=== PATIENT | female | born 1975 | race Caucasian/White ===

== ENCOUNTER 2018-12-28 11:14 | Outpatient (REF) | payer OTHER, SELFPAY ==
[2018-12-28 13:05] LABS: Anion Gap 11.2 mmol/L (3-11); BUN 14 mg/dL (7-18); CO2 25.8 mmol/L (21.0-32.0); CREATININE 0.79 mg/dL (0.55-1.02); Calcium 9.7 mg/dL (8.5-10.1); Chloride 100 mmol/L (98-107); Cholesterol 234 mg/dL (50-200); Glucose 85 mg/dL (70-100); HDL Cholesterol 66 mg/dL (40-60); LDL CHOLESTEROL 129 mg/dL (<100); Potassium 4.6 mmol/L (3.5-5.1); Sodium 137 mmol/L (136-145); Triglyceride 165 mg/dL (30-150)
== END 2018-12-28 11:34 ==
LOC: NCHCN 11:14
PROVIDERS: PCP Nurse Practitioner Family; Visit Provider Nurse Practitioner Family
DX: I10 Essential (primary) hypertension (principal)
CPT/HCPCS: 80048; 80061; 83721

== ENCOUNTER 2020-03-15 08:24 | Outpatient (REF) | payer OTHER, SELFPAY ==
[2020-03-15 14:04] LABS: Hemoglobin A1C 6.2 % (3.8-5.6)
[2020-03-15 14:09] LABS: Anion Gap 11.9 mmol/L (3-11); BUN 9 mg/dL (7-18); CO2 23.1 mmol/L (21.0-32.0); CREATININE 0.79 mg/dL (0.55-1.02); Calcium 9.3 mg/dL (8.5-10.1); Calculated LDL 139 mg/dL (<100); Chloride 100 mmol/L (98-107); Cholesterol 239 mg/dL (<200); Glucose 94 mg/dL (74-106); HDL Cholesterol 62 mg/dL (40-60); Potassium 4.6 mmol/L (3.5-5.1); Sodium 135 mmol/L (136-145); Triglyceride 192 mg/dL (<150)
== END 2020-03-15 08:44 ==
LOC: NCHCN 08:24
PROVIDERS: PCP Nurse Practitioner Family; Visit Provider Nurse Practitioner Family
DX: I10 Essential (primary) hypertension (principal); E78.5 Hyperlipidemia, unspecified; R73.09 Other abnormal glucose
CPT/HCPCS: 80048; 80061; 83036

== ENCOUNTER 2020-05-02 09:08 | Outpatient (REF) | payer OTHER, SELFPAY ==
--- NOTE | 2020-05-02 08:49 | PAPFT_PTH ---
PATIENT: Hortencia Mckenna LOC: [facility] U#:[id number] AGE/SX: 44/F ROOM: RE05/02/[address]: Elizabeth Montalvo : 1975 BED: DIS: 05/02/2020 SPEC #: [id number] RECD: 05/03/20 12:45 STATUS: JAMIL REQ #: [id number] CARLEE: 05/02/20 08:[address]: Elizabeth Montalvo DEPT: [facility] Cytology RECD BY: Bruce Amanda Tissues: 1 - CX/ENDOCX FOR PAP SMEARS Procedures: PAP THIN PREP/UVM Screening HPV DNA PROBE Comments: [id number]
== END 2020-05-02 09:28 ==
LOC: LBN 09:08
PROVIDERS: PCP Nurse Practitioner Family; Visit Provider Nurse Practitioner Family
DX: R87.616 Satisfactory cervical smear but lacking transformation zone (principal); Z11.51 Encounter for screening for human papillomavirus (HPV)
CPT/HCPCS: 88142; 87624

== ENCOUNTER 2021-02-07 11:15 | Outpatient (CLI) | payer OTHER, SELFPAY ==
--- NOTE | 2021-02-07 13:03 | DI.RAD_ITS ---
Exam(s) XR THORACIC SPINE COMPLETE EXAM: XR THORACIC SPINE COMPLETE CLINICAL HISTORY: BACK PAIN M54.9. TECHNIQUE: 2D digital imaging was performed. COMPARISON: No exams were available for comparison FINDINGS: BONES: There is no fracture or destructive lesion. The vertebral bodies and posterior elements are un remarkable. DISKS:Alignment is within normal limits. Mild degenerative changes are seen throughout the thoracic s pine characterized by disc space narrowing and endplate osteophytes. SOFT TISSUE: Unremarkable. IMPRESSION: Mild degenerative changes in the thoracic spine. DATA REPOSITORY: RADIATION DOSE DELIVERED:
--- NOTE | 2021-02-07 13:03 | DI.RAD_ITS ---
Exam(s) XR SCAPULA RT EXAM: XR SCAPULA RT CLINICAL HISTORY: SHOULDER PAIN UNSPECIFIED M25.519, RT SCAPULA PAIN. TECHNIQUE: 2D digital imaging was performed. COMPARISON: No exams were available for comparison FINDINGS: BONES: No acute fracture is present. No bony destructive lesion is seen. JOINTS: No dislocation present. SOFT TISSUE: Normal. IMPRESSION: Unremarkable radiographs of the right scapula. DATA REPOSITORY: RADIATION DOSE DELIVERED:
--- NOTE | 2021-02-07 13:03 | DI.RAD_ITS ---
Exam(s) XR CERVICAL SPINE COMP 4-5V EXAM: XR CERVICAL SPINE COMP 4-5V CLINICAL HISTORY: NECK PAIN M54.2. TECHNIQUE: 2D digital imaging was performed. COMPARISON: No exams were available for comparison FINDINGS: BONES: No fracture or destructive lesion. Vertebral bodies are unremarkable. There is mild narrowing of the right neural foramen at C5-C6. DISKS: There is mild narrowing of the disc space at C5-C6. There are endplate osteophytes at C5-6 and C6-C7. ALIGNMENT: Cervical spinal alignment is within normal limits. The odontoid and atlantoaxial articulat ions are normal. SOFT TISSUE: Normal. The lung apices are clear. IMPRESSION: Mild cervical spondylosis. DATA REPOSITORY: RADIATION DOSE DELIVERED:
== END 2021-02-07 11:35 ==
PROVIDERS: PCP Nurse Practitioner Family; Visit Provider Physician Assistant Medical
DX: M54.6 Pain in thoracic spine (principal); M51.34 Other intervertebral disc degeneration, thoracic region; M25.511 Pain in right shoulder; M54.2 Cervicalgia; M50.322 Other cervical disc degeneration at C5-C6 level; M47.892 Other spondylosis, cervical region
CPT/HCPCS: 72050; 72072; 73010

== ENCOUNTER 2021-05-08 13:54 | Outpatient (REF) | payer OTHER, SELFPAY ==
[2021-05-08 16:41] LABS: Hemoglobin A1C 6.6 % (<5.7)
[2021-05-08 16:46] LABS: ALT 28 U/L (14-59); AST 32 U/L (15-37); Albumin 3.2 g/dL (3.4-5.0); Alkaline Phosphatase 76 U/L (46-116); Anion Gap 11.7 mmol/L (3-11); BUN 12 mg/dL (7-18); Bilirubin, Total 0.4 mg/dL (0.2-1.0); CO2 23.3 mmol/L (21.0-32.0); CREATININE 0.9 mg/dL (0.55-1.02); Calcium 9.2 mg/dL (8.5-10.1); Chloride 104 mmol/L (98-107); Glucose 98 mg/dL (74-106); Potassium 4.4 mmol/L (3.5-5.1); Sodium 139 mmol/L (136-145); Total Protein 7.1 g/dL (6.4-8.2)
[2021-05-08 17:02] LABS: Calculated LDL 143 mg/dL (<100); Cholesterol 240 mg/dL (<200); HDL Cholesterol 63 mg/dL (40-60); Triglyceride 172 mg/dL (<150)
== END 2021-05-08 13:55 | disposition home or self-care (01) ==
LOC: NCHCN 13:54
PROVIDERS: PCP Nurse Practitioner Family; Visit Provider Nurse Practitioner
DX: R73.03 Prediabetes (principal); E78.5 Hyperlipidemia, unspecified; I10 Essential (primary) hypertension
CPT/HCPCS: 80053; 80061; 83036

== ENCOUNTER 2022-04-15 06:52 | Day surgery (SDC) | payer OTHER, SELFPAY ==
--- NOTE | 2022-04-15 06:15 | W.COLOREPORT ---
Colonoscopy Report Date of procedure: 04/15/22 Pre-op diagnosis general: Colon Cancer Screening Post-op diagnosis procedure note: same Procedure: Colonoscopy Surgeon: Maday Hernández Anesthesia Type: General:No Airway Pathology: none sent Complications: None Disposition: same day Indications: The patient is here for Colonoscopy pre-op.? She has no family history of colon cancer. She has not had any bowel habit changes. -Discussed colonoscopy bowel prep as well as the procedure. Discussed possible complications of the procedure to include bleeding, pain, perforation, missed small lesion/polyp, sore throat, aspiration and adverse reaction to the medications. Questions were answered to patient?s satisfaction. No guarantees were implied or given. Prep: Miralax/Dulcolax Procedure Start Time: 08:16 Procedure End Time: 08: Retraction Time: 14 minutes Findings: normal colonoscopy Procedure Description: After informed consent was obtained the patient was taken to the procedure room and placed in a left decubitous position. Monitors were applied and a time out was done. The patients name, date of , procedure, allergies to medications and metal in their body was reviewed. The patient was then sedated. Once sedated and comfortable a rectal exam was done. External exam was normal. Internal exam revealed a normal sphincter tone and no palpable masses. The scope was then introduced and retro-flexed. There were no internal hemorrhoids, no polyps or masses were identified on retro-flexion. The scope was then advanced to the cecum without difficulty. The ileocecal vlave and appendiceal orifice were identified. The prep was good. The scope was then slowly retracted over 14 minutes back into the rectum. There were no Polyps and there was no diverticulosis noted. The scope was removed and the patient was woken up and taken back to Same day surgery in stable condition. The patient tolerated the procedure well and there were no immediate complications.
--- NOTE | 2022-04-15 06:16 | PDOC.DSDIS_ITS ---
Discharge Plan Disposition Patient Disposition: HOME Condition: Good Discharge Details Reason For Visit: colonoscopy Attending Provider: Maday Hernández Primary Care Provider: Elizabeth Montalvo Home Meds and New Rx's Prescriptions: Continued valsartan 320 mg tablet 320 mg PO DAILY amlodipine 5 mg tablet 5 mg PO DAILY melatonin 5 mg capsule 5 mg PO norgestimate-ethinyl estradiol [Zkg-Qk-Imtvlbxx] 0.18/0.215/0.25 mg-25 mcg tablet 1 tab PO DAILY hydrochlorothiazide 25 mg tablet 25 mg PO DAILY pravastatin 40 mg tablet 40 mg PO DAILY cholecalciferol (vitamin D3) 25 mcg (1,000 unit) capsule 25 mcg PO DAILY fluocinonide 0.05 % solution 1 applic topical BID calcium carbonate [Calcium 600] 600 mg calcium (1,500 mg) tablet 600 mg PO DAILY Discontinued bisacodyl [Dulcolax (bisacodyl)] 5 mg tablet,delayed release (DR/EC) 5 mg PO ONCE Qty: 4 0RF Rx Instructions: Take according to provider's instructions for colonoscopy prep. polyethylene glycol 3350 17 gram/dose powder 17 g PO ONCE Qty: 238 0RF Rx Instructions: To be taken as directed by prescriber's office for colonoscopy prep. Discharge Instructions Additional Instructions: Findings: Normal Follow up: 10 years Please call if you develop: fevers >101.5 Nausea or Vomiting Abdominal pain that is not transient Rectal bleeding that is more then a tbsp A hard abdomen and inability to pass gas DAY SURGERY UNIT POST ENDOSCOPY INSTRUCTIONS Instructions for everyone who is given Anesthesia: For your safety, please do the following for the next 24 Hours: a. Do not drive or operate dangerous equipment b. Do not drink alcohol beverages or use any recreational drugs for the first 24 hours or while taking pain medications. The medications in your body may have a reaction that can be dangerous. c. Do not make any important decisions or sign any important papers 1. Generally there are no restrictions on your activity after a day or so has gone by, but you may feel a bit fatigued for a few days. 2. After you arrive home you may have a light meal and return to a normal diet as you can tolerate it without feeling sick to your stomach. 3. After surgery, you may feel pain or discomfort. This should be only transient , but if it persists please contact your doctor. 4. If there are any questions regarding the findings of your procedure, please feel free to contact your doctor. 6. If you are unable to contact your doctor with a problem, contact the hospital at [phone]. 7. Continue all your regular medications unless directed otherwise. I understand the above instructions and have no questions. Signature of Patient or Responsible Adult Escort Date/Time Name of Responsible Adult Escort Signature of Nurse Date/Time Activity:: Activity as Tolerated Diet:: As Tolerated Discharge Orders Discharge Orders: Discharge Order (Routine); Ordered 04/15/22 Ordered By: Maday Hernández
[2022-04-15 07:03] VITALS: BP 149/92; PULSE 96; RESP 18; TEMP 36.3; O2SAT 96
[2022-04-15] MEDS: Lactated Ringers 1,000 ML 80 ML IV (07:22)
--- NOTE | 2022-04-15 07:34 | ANES.PREOP_ITS ---
General Info Date of Service Date Performed: 04/15/22 Height: 5 ft 3 in Weight: 109.2 kg Body Mass Index (BMI): 42.6 Surgical Procedure: Operation Date: 04/15/22 08:35 Proposed Procedure Side Surgeon stepan Hernández MD Meds Allergies and Home Medications Allergies Allergy/AdvReac Type Severity Reaction Status Date / Time No Known Allergies Allergy Verified 04/15/22 07:12 Home Medication Medication Instructions Recorded calcium carbonate 600 mg calcium 600 mg PO DAILY 07/19/21 (1,500 mg) tablet (Calcium) cholecalciferol (vitamin D3) 25 25 mcg PO DAILY 07/19/21 mcg (1,000 unit) capsule fluocinonide 0.05 % topical 1 applic topical BID 07/19/21 solution hydrochlorothiazide 25 mg tablet 25 mg PO DAILY 07/19/21 norgestimate 0.18 mg/0.215 mg/0.25 1 tab PO DAILY 07/19/21 mg-ethinyl estradiol 25 mcg tablet (Chb-Gm-Ggjjawca) pravastatin 40 mg tablet 40 mg PO DAILY 07/19/21 amlodipine 5 mg tablet 5 mg PO DAILY 03/28/22 bisacodyl 5 mg tablet,delayed 5 mg PO ONCE #4 tabs 03/28/22 release (Dulcolax (bisacodyl)) melatonin 5 mg capsule 5 mg PO 03/28/22 polyethylene glycol 3350 17 17 g PO ONCE #238 grams 03/28/22 gram/dose oral powder valsartan 320 mg tablet 320 mg PO DAILY 03/28/22 Current Visit Medications: Current Medications Generic Name Dose Route Start Last Admin Trade Name Freq PRN Reason Stop Dose Admin Hyoscyamine Sulfate 0.125 mg 04/15/22 06:16 Hyoscyamine 0.125 Mg Sl/Oral/Chew SL DIRECTED PRN Ringer's Solution 1,000 mls @ 80 mls/hr 04/15/22 06:00 04/15/22 07:22 IV 05/12/22 23:59 80 mls/hr INFUSION CALEB Administration IV Miscellaneous Supplies 1 each 04/15/22 06:00 Iv Access IV 05/12/22 23:59 DIRECTED CALEB Ondansetron HCl 4 mg 04/15/22 06:16 Ondansetron 4 Mg/2 Ml Vial IVP Q4H PRN PRN Nausea / Vomiting Sodium Chloride 0 ml 04/15/22 06:00 Normal Saline Flush 10 Ml Syr IV 05/12/22 23:59 PRN PRN Sodium Chloride 0 ml 04/15/22 06:00 Normal Saline 10 Ml Vial IJ 05/12/22 23:59 DIRECTED PRN Sterile Water 0 ml 04/15/22 06:00 Water,Injection,Sterile 10 Ml Vial IJ 05/12/22 23:59 DIRECTED PRN PFSH Active Problems Active Problems: Problem Status Onset Code BMI 40.0-44.9, adult Z68.41 Screening for colon cancer Z12.11 Medical History Medical History Bruxism Hyperlipidemia Hypertension Joint pain Polycystic ovary syndrome Prediabetes Psoriasis Sleep disturbance Tobacco Smoking/Tobacco Use Status: Never Alcohol Alcohol Intake: never Substance Use Substance use type: does not use Vital Signs and Lab Results Vital Signs Most Recent Vital Signs in EMR: Most Recent Vital Signs Temp Pulse Resp BP Pulse Ox 36.3 C L 96 H 18 149/92 H 96 04/15/22 07:03 04/15/22 07:03 04/15/22 07:03 04/15/22 07:03 04/15/22 07:03 Lab Results Blood Type / Crossmatch: No Data to Display Complete Blood Count: No Data to Display Complete Metabolic Panel: No Data to Display Liver Function Panel: No Data to Display Coagulation Panel: No Data to Display Cardiac Panel: No Data to Display Arterial Blood Gas: No Data to Display Venous Blood Gas: No Data to Display Pancreas Panel: No Data to Display Thyroid Panel: No Data to Display Infectious Disease: No Data to Display Blood Cultures: No Data to Display Toxicology Panel: No Data to Display Panel: No Data to Display Anesthesia Assessment and Plan Anesthesia History Personal History: No History of Anesthesia Complications Family History: No Family History of Anesthesia Complications Exercise Tolerance Exercise Tolerance: Metabolic Equivalents>4 Pertinent Negatives Pertinent Negatives: No Symptoms of GERD, No Major Cardiovascular Symptoms or Complaints, No Major Pulmonary Symptoms or Complaints (NAMRATA CPAP is on backorder) and No History of CVA/TIA Cardiac & Pulmonary Exam Cardiac Exam: Normal S1/S2 Heart Sounds Pulmonary Exam: Clear Bilateral Breath Sounds Implantable Cardiac Device Does patient have a Pacemaker or an ICD?: No Airway Exam Known Difficult Airway: No Mallampati Class: 1 Mouth Opening: Normal (> 3cm) Thyromental Distance: Greater than 3 cm Neck Range of Motion: Full ROM Neck Circumference: Thick Teeth Condition: Normal Dentition Airway Comments: Highly angle narrow palate Mcalister torrus ASA Classification ASA Score: ASA 2 Emergency Case?: No NPO Status NPO Status: NPO Clears >2 hours, Solids >8 hours Status Status: Negative HCG Anesthesia Plan Resuscitation Status: Full Code Anesthesia Technique: General Anesthesia Airway Planned: Natural Airway Monitors Used: Standard Monitors
[2022-04-15 07:39] VITALS: BMI 42.6
[2022-04-15 08:50] VITALS: BP 114/78; PULSE 80; RESP 16; TEMP 36.3; O2SAT 95
--- NOTE | 2022-04-15 09:08 | W.ANESPOSTOP ---
Postoperative Evaluation Date, Time and Location Date Performed: 04/15/22 Time Performed: 08:54 Patient Location: Day Surgery Unit Vital Signs Most Recent Imported Vital Signs: Most Recent Vital Signs Temp Pulse Resp BP Pulse Ox 36.3 C L 80 16 114/78 95 04/15/22 08:50 04/15/22 08:50 04/15/22 08:50 04/15/22 08:50 04/15/22 08:50 Pain Score Most Recent Pain Score: Most Recent Pain Score Pain Level 0 04/15/22 07:03 Assessment Mental Status: Awake (Alert & Oriented to Patient Baseline) Airway and Respiratory Function: Patent airway with normal (patient baseline) respiratory exam Cardiovascular Function: Hemodynamically Stable Hydration Status: Adequately Hydrated Nausea & Vomiting: No Nausea or Vomiting Pain: Pt. Denies Any Pain Peripheral Nerve Block: Patient did not receive a nerve block
[2022-04-15 09:13] VITALS: BP 134/90; PULSE 82; RESP 18; TEMP 36.4; O2SAT 97
== END 2022-04-15 09:40 | disposition home or self-care (01) ==
PROVIDERS: PCP Nurse Practitioner Family; Visit Provider Surgery
PROC: 0DJD8ZZ Inspection of Lower Intestinal Tract, Via Natural or Artificial Opening Endoscopic (ICD-10-PCS; CPT 45378; principal; 2022-04-15 08:30)
DX: Z12.11 Encounter for screening for malignant neoplasm of colon (principal); I10 Essential (primary) hypertension; E78.5 Hyperlipidemia, unspecified
CPT/HCPCS: 45378; 81025

== ENCOUNTER 2022-05-14 18:42 | Outpatient (REF) | payer OTHER, SELFPAY ==
[2022-05-14 15:35] LABS: Hemoglobin A1C 6.4 % (<5.7)
[2022-05-14 15:39] LABS: Anion Gap 11.2 mmol/L (3-11); BUN 12 mg/dL (7-18); CO2 27.8 mmol/L (21.0-32.0); CREATININE 0.9 mg/dL (0.55-1.02); Calcium 9.3 mg/dL (8.5-10.1); Calculated LDL 134 mg/dL (<100); Chloride 101 mmol/L (98-107); Cholesterol 228 mg/dL (<200); Estimated GFR 79.35 (mL/min/1.73m2); Glucose 99 mg/dL (74-106); HDL Cholesterol 67 mg/dL (40-60); Potassium 3.8 mmol/L (3.5-5.1); Sodium 140 mmol/L (136-145); Triglyceride 135 mg/dL (<150)
== END 2022-05-14 18:43 | disposition home or self-care (01) ==
LOC: NCHCN 18:42
PROVIDERS: PCP Nurse Practitioner Family; Visit Provider Nurse Practitioner Family
DX: I10 Essential (primary) hypertension (principal); R73.03 Prediabetes; E78.5 Hyperlipidemia, unspecified
CPT/HCPCS: 80048; 80061; 83036

== ENCOUNTER 2023-05-15 16:50 | Outpatient (REF) | payer OTHER, SELFPAY ==
[2023-05-15 16:21] LABS: Hemoglobin A1C 6.5 % (<5.7)
[2023-05-15 16:38] LABS: ALT 25 U/L (14-59); AST 23 U/L (15-37); Alkaline Phosphatase 77 U/L (46-116); Anion Gap 10.1 mmol/L (3-11); BUN 13 mg/dL (7-18); Bilirubin, Total 0.4 mg/dL (0.2-1.0); CO2 25.9 mmol/L (21.0-32.0); CREATININE 0.7 mg/dL (0.55-1.02); Calculated LDL 120 mg/dL (<100); Chloride 101 mmol/L (98-107); Cholesterol 214 mg/dL (<200); Estimated GFR 106.62 (mL/min/1.73m2); Glucose 96 mg/dL (74-106); HDL Cholesterol 64 mg/dL (40-60); Potassium 3.9 mmol/L (3.5-5.1); Sodium 137 mmol/L (136-145); Triglyceride 152 mg/dL (<150)
[2023-05-16 08:44] LABS: Hepatitis C Ab w Rflx HCV PCR Negative (Negative)
[2023-05-16 16:19] LABS: HIV-1/2 Ag & Ab Screen Reactive (Negative)
[2023-05-22 10:01] LABS: HIV 1 Ab Diff Negative (Negative); HIV 2 Ab Diff Negative (Negative)
[2023-05-22 10:02] LABS: HIV 1&2 Ab Final Interpret HIV Negative
== END 2023-05-15 16:51 | disposition home or self-care (01) ==
LOC: NCHCN 16:50
PROVIDERS: PCP Nurse Practitioner Family; Visit Provider Nurse Practitioner Family
DX: Z11.4 Encounter for screening for human immunodeficiency virus [HIV] (principal); E78.5 Hyperlipidemia, unspecified; I10 Essential (primary) hypertension; R73.03 Prediabetes; Z11.59 Encounter for screening for other viral diseases
CPT/HCPCS: 80053; 80061; 86701; 86702; 86803; 87389; 83036

== ENCOUNTER 2023-05-26 18:39 | Outpatient (REF) | payer OTHER, SELFPAY ==
[2023-05-28 15:36] LABS: Chlamydia Result Negative (Negative); GC Result Negative (Negative)
== END 2023-05-26 18:40 | disposition home or self-care (01) ==
LOC: NCHCN 18:39
PROVIDERS: PCP Nurse Practitioner Family; Visit Provider Family Medicine
DX: Z00.00 Encounter for general adult medical examination without abnormal findings (principal); Z11.3 Encounter for screening for infections with a predominantly sexual mode of transmission
CPT/HCPCS: 87491; 87591

== ENCOUNTER → 2023-07-09 00:06 | Outpatient (CLI) | payer OTHER, SELFPAY ==
--- NOTE | 2023-07-09 | DI.MAMMO_ITS ---
Exam(s) MAMMO SCREENING EXAM: MAMMO SCREENING CLINICAL HISTORY: SCREENING, Z12.39. TECHNIQUE: Bilateral full field digital CC and MLO mammographic images were obtained with 3D tomosyn thesis and utilizing computer aided detection (CAD). COMPARISON: None. This is a baseline mammogram on this 47-year-old patient. FINDINGS: Fibroglandular tissue pattern is predominately fatty. There are no significant focal findings in left breast. In the right breast there are few benign-appearing nodules which have the appearance of benign intram ammary lymph nodes. However, there is also a more anteriorly located well-defined noncalcified sligh tly lobulated nodule measuring 6 x 5 mm, medial of center and located approximately 5 cm from the nip ple on the CC view. There are no malignant-appearing microcalcification groups in this region or elsewhere in either [address]. There is no significant architectural distortion nor skin thickening-retraction. IMPRESSION: 1. No radiographic evidence of malignancy in left breast. 2. There is a 6 x 5 mm medial of center nodule in the right breast. Ultrasound is recommended to det ermine if this is solid or cystic. BI-RADS Category 0 - Assessment Incomplete: Need additional imaging evaluation Breast Density - Category A - Almost entirely fatty Breast density Category C or D implies that the patient has dense breast tissue. Dense breast tissue can make it harder to find cancer on a mammogram. Dense breast tissue is also associated with an incr eased risk of breast cancer. This information about the result of the mammogram report was provided to the patient to raise their awareness. Use this report when you speak with the patient about their risks for breast cancer, which includes their family history. At that time, you may recommend additional screening tests (Ultrasoun d or MRI) as these tests may add significant information. A negative radiographic report should not delay biopsy if a dominant or clinically suspicious mass is present. Up to ten percent of cancers are not identified on mammography. A negative report may reinforce clinical impression. Adenosis and dense breasts may obscure an underlying neoplasm. False positive reports average 6 to 10%. Patient will receive a letter notifying them of these results.
== END ==
PROVIDERS: PCP Nurse Practitioner Family; Visit Provider Nurse Practitioner Family
DX: Z12.31 Encounter for screening mammogram for malignant neoplasm of breast (principal); R92.313 Mammographic fatty tissue density, bilateral breasts; N63.41 Unspecified lump in right breast, subareolar
CPT/HCPCS: 77063; 77067

== ENCOUNTER 2024-01-28 10:17 | Outpatient (REF) | payer OTHER, SELFPAY ==
[2024-01-28 15:23] LABS: Abs Immature Grans 0.03 10^3/uL (0.0-0.06); Absolute Basophil Count 0.06 10^3/uL (0.0-0.2); Absolute Monocyte Count 0.57 10^3/uL (0.1-0.8); Basophils % 0.5 %; Eosinophils % 2.1 %; HCT 42.2 % (36.0-46.0); HGB 13.8 g/dL (11.2-15.7); Immature Grans % 0.3 %; Lymphocytes % 25.7 %; MCH 28.9 pg (27.0-33.0); MCHC 32.7 % (32.0-36.0); MCV 88 fL (80-95); MPV 10.1 fL (8.0-11.0); Monocytes % 4.9 %; Neutrophils % 66.5 %; Platelet Count 419 10^3/uL (130-400); RBC 4.78 10^6/uL (3.93-5.22); RDW-SD 48.6 fL; WBC 11.67 10^3/uL (4.4-10.8)
[2024-01-28 15:29] LABS: Absolute Eosinophil Count 0.25 10^3/uL (0.0-0.7); Absolute Neutrophil Count 7.76 10^3/uL (1.2-6.7)
[2024-01-28 15:58] LABS: ALT 69 U/L (14-59); AST 57 U/L (15-37); Albumin 3.5 g/dL (3.4-5.0); Alkaline Phosphatase 93 U/L (46-116); Anion Gap 9.4 mmol/L (3-11); BUN 14 mg/dL (7-18); Bilirubin, Total 0.5 mg/dL (0.2-1.0); CO2 28.6 mmol/L (21.0-32.0); CREATININE 0.8 mg/dL (0.55-1.02); Calcium 9.3 mg/dL (8.5-10.1); Calculated LDL 139 mg/dL (<100); Chloride 100 mmol/L (98-107); Cholesterol 225 mg/dL (<200); Estimated GFR 90.27 (mL/min/1.73m2); Glucose 102 mg/dL (74-106); HDL Cholesterol 57 mg/dL (40-60); Potassium 4.6 mmol/L (3.5-5.1); Sodium 138 mmol/L (136-145); Total Protein 7.3 g/dL (6.4-8.2); Triglyceride 147 mg/dL (<150)
[2024-01-28 16:34] LABS: Hemoglobin A1C 6.7 % (<5.7)
== END 2024-01-28 10:18 | disposition home or self-care (01) ==
LOC: NCHCN 10:17
PROVIDERS: Visit Provider Nurse Practitioner Family
DX: I10 Essential (primary) hypertension (principal); Z13.220 Encounter for screening for lipoid disorders; Z13.1 Encounter for screening for diabetes mellitus
CPT/HCPCS: 80053; 80061; 83036; 85025

== ENCOUNTER → 2024-03-05 01:53 | Outpatient (CLI) | payer OTHER, SELFPAY ==
--- NOTE | 2024-03-05 | DI.MAMMO_ITS ---
Exam(s) MAMMO DIAGNOSTIC UNI EXAM: MAMMO DIAGNOSTIC UNI-RIGHT CLINICAL HISTORY: R92.8 6 MO FU other abn mammo RT. TECHNIQUE: Unilateral right breast CC and MLO mammographic images were obtained with 3D tomosynthesi s technique and utilizing computer aided detection (CAD). COMPARISON: Prior mammograms were reviewed, the most recent being July 2023. Prior ultrasound N ov2022 was also reviewed.. FINDINGS: DIAGNOSTIC RIGHT BREAST MAMMOGRAM: The medial of center small nodule remains unchanged in size and configuration, and has been shown to be a benign microcyst on ultrasound examination of 07/16/2023. No new spiculated masses nor malignant-appearing microcalcification groups. No new architectural distortion or skin thickening-traction. Repeat ultrasound examination is not required IMPRESSION: Stable benign right breast findings. No radiographic evidence of malignancy in the right breast. Appropriate follow-up is to keep this patient on her yearly mammogram schedule, this implying the nex t bilateral mammogram would be in July 2024, with earlier imaging if a self detected breast rushing e is noted. The patient was informed of the findings and follow-up recommendations by myself prior to leaving the department today. BI-RADS Category 2 - Benign Findings Breast Density - Category B - Scattered areas of fibroglandular density Breast density Category C or D implies that the patient has dense breast tissue. Dense breast tissue can make it harder to find cancer on a mammogram. Dense breast tissue is also associated with an incr eased risk of breast cancer. This information about the result of the mammogram report was provided to the patient to raise their awareness. Use this report when you speak with the patient about their risks for breast cancer, which includes their family history. At that time, you may recommend additional screening tests (Ultrasoun d or MRI) as these tests may add significant information. A negative radiographic report should not delay biopsy if a dominant or clinically suspicious mass is present. Up to ten percent of cancers are not identified on mammography. A negative report may reinforce clinical impression. Adenosis and dense breasts may obscure an underlying neoplasm. False positive reports average 6 to 10%. Patient will receive a letter notifying them of these results.
== END ==
PROVIDERS: Visit Provider Nurse Practitioner Family
DX: R92.8 Other abnormal and inconclusive findings on diagnostic imaging of breast (principal)
CPT/HCPCS: 77061; 77065; G0279

== ENCOUNTER 2024-05-18 14:52 | Outpatient (REF) | payer OTHER, SELFPAY ==
[2024-05-18 16:15] LABS: Abs Immature Grans 0.04 10^3/uL (0.0-0.06); Absolute Eosinophil Count 0.21 10^3/uL (0.0-0.7); Absolute Lymphocyte Count 3.18 10^3/uL (1.2-3.4); Absolute Monocyte Count 0.58 10^3/uL (0.1-0.8); Basophils % 0.4 %; Eosinophils % 1.8 %; HCT 44.8 % (36.0-46.0); HGB 14.6 g/dL (11.2-15.7); Immature Grans % 0.4 %; Lymphocytes % 27.9 %; MCHC 32.6 % (32.0-36.0); MCV 89 fL (80-95); MPV 9.9 fL (8.0-11.0); Monocytes % 5.1 %; Neutrophils % 64.4 %; Platelet Count 388 10^3/uL (130-400); RBC 5.03 10^6/uL (3.93-5.22); RDW 14.6 % (11.7-14.6); RDW-SD 47.7 fL
[2024-05-18 16:22] LABS: Absolute Basophil Count 0.05 10^3/uL (0.0-0.2); Absolute Neutrophil Count 7.34 10^3/uL (1.2-6.7)
[2024-05-18 16:40] LABS: ALT 52 U/L (14-59); AST 47 U/L (15-37); Albumin 3.5 g/dL (3.4-5.0); Alkaline Phosphatase 101 U/L (46-116); Anion Gap 9.2 mmol/L (3-11); BUN 12 mg/dL (7-18); Bilirubin, Total 0.46 mg/dL (0.2-1.0); CO2 27.8 mmol/L (21.0-32.0); CREATININE 0.8 mg/dL (0.55-1.02); Calculated LDL 123 mg/dL (<100); Chloride 100 mmol/L (98-107); Cholesterol 209 mg/dL (<200); Estimated GFR 90.27 (mL/min/1.73m2); Glucose 87 mg/dL (74-106); HDL Cholesterol 61 mg/dL (40-60); Sodium 137 mmol/L (136-145); Total Protein 8.1 g/dL (6.4-8.2); Triglyceride 126 mg/dL (<150)
[2024-05-18 17:25] LABS: Hemoglobin A1C 6.3 % (<5.7)
== END 2024-05-18 14:53 | disposition home or self-care (01) ==
LOC: NCHCN 14:52
PROVIDERS: PCP Nurse Practitioner Family; Visit Provider Nurse Practitioner Family
DX: E11.9 Type 2 diabetes mellitus without complications (principal); I10 Essential (primary) hypertension
CPT/HCPCS: 80053; 80061; 83036; 85025

== ENCOUNTER 2024-07-12 01:19 | Outpatient (CLI) | payer OTHER, SELFPAY ==
--- NOTE | 2024-07-12 | DI.MAMMO_ITS ---
Exam(s) MAMMO SCREENING EXAM: MAMMO SCREENING CLINICAL HISTORY: Screening, Z12.31 TECHNIQUE: Mammograms were interpreted according to the usual protocol including computer analysis w [employer] CAD system, tomosynthesis and C-view imaging. COMPARISON: 2022 and 2023 FINDINGS: The breasts are composed of mainly fatty density , Breast Density category A. No suspicious masses or suspicious microcalcifications are seen. No skin thickening or abnormal axillary lymph nodes are seen. There has been no significant change from prior exams. IMPRESSION: BI-RADS Category 1, Negative mammogram Yearly screening mammography is recommended. Breast Density - Category A, fatty density. A negative radiographic report should not delay biopsy if a dominant or clinically suspicious mass is present. Up to ten percent of cancers are not identified on mammography. A negative report may reinforce clinical impression. Adenosis and dense breasts may obscure an underlying neoplasm. False positive reports average 6 to 10%. Patient will receive a letter notifying them of these results.
== END 2024-07-12 01:39 ==
LOC: DI 01:19
PROVIDERS: PCP Nurse Practitioner Family; Visit Provider Nurse Practitioner Family
DX: Z12.31 Encounter for screening mammogram for malignant neoplasm of breast (principal); R92.313 Mammographic fatty tissue density, bilateral breasts
CPT/HCPCS: 77063; 77067

== ENCOUNTER 2025-02-08 14:54 | Outpatient (REF) | payer OTHER, SELFPAY ==
[2025-02-08 16:06] LABS: Abs Immature Grans 0.04 10^3/uL (0.0-0.06); Absolute Basophil Count 0.05 10^3/uL (0.0-0.2); Absolute Eosinophil Count 0.17 10^3/uL (0.0-0.7); Absolute Monocyte Count 0.52 10^3/uL (0.1-0.8); Basophils % 0.4 %; Eosinophils % 1.4 %; HCT 43.8 % (36.0-46.0); HGB 14.3 g/dL (11.2-15.7); Immature Grans % 0.3 %; Lymphocytes % 20.4 %; MCH 29.2 pg (27.0-33.0); MCHC 32.6 % (32.0-36.0); MCV 89 fL (80-95); Monocytes % 4.2 %; Neutrophils % 73.3 %; RDW 14.5 % (11.7-14.6); RDW-SD 47.4 fL; WBC 12.48 10^3/uL (4.4-10.8)
[2025-02-08 16:15] LABS: C-Reactive Protein 1.74 mg/dL (<or=0.5); Uric Acid 7.7 mg/dL (2.6-6.0)
[2025-02-08 16:19] LABS: Absolute Lymphocyte Count 2.55 10^3/uL (1.2-3.4); Absolute Neutrophil Count 9.15 10^3/uL (1.2-6.7)
[2025-02-08 17:17] LABS: Diff Comment PLT Morph Reviewed; RBC Morphology Normal
[2025-02-09 10:27] LABS: Lyme Ab w Rflx to Lyme Confirm Negative (Negative)
== END 2025-02-08 14:55 | disposition home or self-care (01) ==
LOC: LBN 14:54
PROVIDERS: PCP Nurse Practitioner Family; Visit Provider Nurse Practitioner Family
DX: M25.561 Pain in right knee (principal)
CPT/HCPCS: 84550; 85025; 86140; 86618

== ENCOUNTER 2025-05-24 16:10 | Outpatient (REF) | payer OTHER, SELFPAY ==
--- NOTE | 2025-05-24 14:00 | PAPFT_PTH ---
PATIENT: Hortencia Mckenna LOC: [facility]#:[id number] AGE/SX: 49/F ROOM: RE05/24/[address]: Carlos Kessler : 1975 BED: DIS: 05/24/2025 SPEC #: [id number] RECD: 05/24/25 18:28 STATUS: JAMIL REKerri #: [id number] CARLEE: 05/24/25 14:[address]: Carlos Kessler DEPT: [facility] Cytology RECD BY: Marci Thacker ENTERED: 05/24/25 18:28 SP TYPE: PAPFT OTHR DR: Gloria Herrera Tissues: 1 - CX/ENDOCX FOR PAP SMEARS Procedures: PAP THIN PREP/UVM Screening HPV DNA PROBE Comments: [id number] (HPV 16 & 18/45)
[2025-05-24 20:20] LABS: ALT 42 U/L (14-59); AST 21 U/L (15-37); Albumin 3.9 g/dL (3.4-5.0); Alkaline Phosphatase 101 U/L (46-116); Anion Gap 12.2 mmol/L (3-11); BUN 18 mg/dL (7-18); Bilirubin, Total 0.5 mg/dL (0.2-1.0); CO2 28.8 mmol/L (21.0-32.0); Calcium 10.2 mg/dL (8.5-10.1); Chloride 97 mmol/L (98-107); Estimated GFR 105.30 (mL/min/1.73m2); Glucose 97 mg/dL (74-106); Potassium 3.7 mmol/L (3.5-5.1); Sodium 138 mmol/L (136-145); Total Protein 7.7 g/dL (6.4-8.2)
[2025-05-24 20:30] LABS: COMMENT (LAB VIEW ONLY) 65.60 mg/dL; Microalb ug/mg Crea 7.8 ug/mg Cr
== END 2025-05-24 16:11 | disposition home or self-care (01) ==
LOC: NCHCN 16:10
PROVIDERS: PCP Nurse Practitioner Family; Visit Provider Student in an Organized Health Care Education/Training Program
DX: Z12.4 Encounter for screening for malignant neoplasm of cervix (principal)
CPT/HCPCS: 80053; 88142; 82043; 82570; 87624

== ENCOUNTER → 2025-07-13 01:15 | Outpatient (CLI) | payer OTHER, SELFPAY ==
--- NOTE | 2025-07-13 08:24 | DI.MAMMO_ITS ---
Exam(s) MAMMO SCREENING EXAM: MAMMO SCREENING CLINICAL HISTORY: SCREENING, Z12.31 TECHNIQUE: Mammograms were interpreted according to the usual protocol including computer analysis with CAD system, tomosynthesis and C-view imaging. COMPARISON: 2022 and 2023 FINDINGS: The breasts are composed of mainly fatty density , Breast Density category A. No suspicious masses or suspicious microcalcifications are seen. Stable circumscribed nodule in the anterior right breast. No skin thickening or abnormal axillary lymph nodes are seen. There has been no significant change from prior exams. IMPRESSION: BI-RADS Category 2 - Benign Findings Yearly screening mammography is recommended. Breast Density- Category A - The breast are almost entirely fatty. Breast density Category C or D implies that the patient has dense breast tissue. Dense breast tissue can make it harder to find cancer on a mammogram. Dense breast tissue is also associated with an increased risk of breast cancer. This information about the result of the mammogram report was provided to the patient to raise their awareness. Use this report when you speak with the patient about their risks for breast cancer, which includes their family history. At that time, you may recommend additional screening tests (Ultrasound or MRI) as these tests may add significant information. A negative radiographic report should not delay biopsy if a dominant or clinically suspicious mass is present. Up to ten percent of cancers are not identified on mammography. A negative report may reinforce clinical impression. Adenosis and dense breasts may obscure an underlying neoplasm. False positive reports average 6 to 10%. Patient will receive a letter notifying them of these results.
== END ==
PROVIDERS: PCP Nurse Practitioner Family; Visit Provider Student in an Organized Health Care Education/Training Program
DX: Z12.31 Encounter for screening mammogram for malignant neoplasm of breast (principal)
CPT/HCPCS: 77063; 77067

== ENCOUNTER → 2025-08-11 17:41 | Outpatient (CLI) | payer OTHER, SELFPAY ==
--- NOTE | 2025-08-11 | DI.RAD_ITS ---
Exam(s) XR FOOT RT COMPLETE EXAM: XR FOOT RT COMPLETE CLINICAL HISTORY: PAIN ON RIGHT GREAT TOE icd-10: m79.674. TECHNIQUE: 2D digital imaging was performed. COMPARISON: No exams were available for comparison FINDINGS: 3 views There appears to be some soft tissue swelling of the dorsal aspect of the foot. There is no evidence of acute fracture or diastasis of the Lisfranc joint. The great toe metatarsophalangeal joint appears unremarkable. Bone density normal. No osseous lesions nor erosions. No radiopaque foreign bodies. No obvious degenerative changes. No pes planus. IMPRESSION: No acute osseous findings in the foot. There appears to be some dorsal soft tissue swelling over the metatarsal region. DATA REPOSITORY: RADIATION DOSE DELIVERED:
--- NOTE | 2025-08-11 18:23 | DI.VRAD_ITS ---
PROCEDURE INFORMATION: Exam: XR Right Foot Exam date and time: 08/11/2025 6:00 PM Age: 49 years old Clinical indication: Pain; Toes; Right; Additional info: Pain great toe / ? FX or gout TECHNIQUE: Imaging protocol: Radiologic exam of the right foot. Views: 3 or more views. COMPARISON: No relevant prior studies available. FINDINGS: Bones/joints: Normal. No evidence for fracture. Joint spaces well preserved. Soft tissues: Normal. IMPRESSION: No evidence for fracture. No definite underlying arthropathy change. Dictated and Authenticated by: Marielle James MD. Orderin Chantell Sapp MD
== END ==
LOC: DI 17:41
PROVIDERS: PCP Nurse Practitioner Family; Visit Provider Physician Assistant Medical
DX: M79.674 Pain in right toe(s) (principal)
CPT/HCPCS: 73630